=== PATIENT | male | born 1965 | race Caucasian/White ===

== ENCOUNTER 2020-05-11 08:30 | Inpatient (IN) | payer OTHER ==
[~2020-05-11] VITALS: Ht 175.3 cm; Wt 131.1 kg
[~2020-05-11 08:30] MED LIST: CARVEDILOL3.125 MG PO; CEFADROXIL500 MG PO; DEXILANT30 MG PO; DIOVAN320 MG PO; GLIPIZIDE10 MG PO; INTEGRA PLUS C1 EACH PO; INTEGRA PLUS CAPSULE PO; JANUVIA100 MG PO; METFORMIN HCL1000 MG PO; NORVASC10 MG PO; OXYC1TAB9 PO; TRAM1TAB98 PO; XARELTO 10MG PO; XARELTO10 MG PO; [UNRECOGNIZED DRUG - OTHER] PO
[2020-05-11] MEDS ORDERED: ASPIR 8181 MG PO (08:31)
[2020-05-11] MEDS ORDERED: [UNRECOGNIZED DRUG - OTHER] PO (08:32)
[2020-05-11] MEDS ORDERED: [UNRECOGNIZED DRUG - OTHER] PO (08:33)
[2020-05-11] MEDS ORDERED: SIMVASTATIN10 MG PO (08:34)
[2020-05-11] MEDS ORDERED: TAMS0.4C PO (08:34)
[2020-05-11] MEDS ORDERED: HUMULIN N100 UNIT/2 SUBCUTANEO (11:21)
[2020-05-11] MEDS ORDERED: JANUMET 50-1,01 EACH PO (11:22)
[2020-05-18] MEDS ORDERED: TOLTERODINE TART4 MG (13:08)
[2020-05-18] MEDS ORDERED: METOPROLOL SUCC50 MG PO (13:09)
[2020-05-18] MEDS ORDERED: ZADITOR5 ML (13:10)
[2020-05-18] MEDS ORDERED: CLOPIDOGREL BIS75 MG PO (13:10)
[2020-05-18] MEDS ORDERED: ZYRTEC10 MG (13:10)
[2020-05-22] MEDS ORDERED: XARELTO10 MG PO (08:20)
[2020-05-22] MEDS ORDERED: Septra Ds Tablet PO (08:20)
[2020-05-22] MEDS ORDERED: INTEGRA PLUS C1 EACH PO (08:20)
[2020-05-22] MEDS ORDERED: OXYC1TAB9 PO (08:20)
== END 2020-05-22 09:45 | disposition home or self-care (01) | DRG 470 ==
LOC: O/R 05-18 05:50 → SURH 05-18 05:50
PROVIDERS: ADMIT Orthopaedic Surgery Sports Medicine; ATTEND Orthopaedic Surgery Sports Medicine
PROC: 0SRD0J9 Replacement of Left Knee Joint with Synthetic Substitute, Cemented, Open Approach (ICD-10-PCS; principal; 2020-05-18 13:15)
PROC: 30233N1 Transfusion of Nonautologous Red Blood Cells into Peripheral Vein, Percutaneous Approach (ICD-10-PCS; 2020-05-21)
DX: M17.12 Unilateral primary osteoarthritis, left knee (principal); E11.9 Type 2 diabetes mellitus without complications; I10 Essential (primary) hypertension; E66.01 Morbid (severe) obesity due to excess calories; Z79.4 Long term (current) use of insulin; G47.33 Obstructive sleep apnea (adult) (pediatric); D64.9 Anemia, unspecified; T45.515A Adverse effect of anticoagulants, initial encounter

== ENCOUNTER 2021-11-11 07:30 | Inpatient (IN) | payer OTHER ==
[~2021-11-11] VITALS: Ht 175.3 cm; Wt 131.5 kg
[~2021-11-11 07:30] MED LIST changes: +ASPIR 8181 MG PO; +CLOPIDOGREL BIS75 MG PO; +HUMULIN N100 UNIT/2 SUBCUTANEO; +JANUMET 50-1,01 EACH PO; +METOPROLOL SUCC50 MG PO; +SIMVASTATIN10 MG PO; +Septra Ds Tablet PO; +TAMS0.4C PO; +TOLTERODINE TART4 MG; +ZADITOR5 ML; +ZYRTEC10 MG; +[UNRECOGNIZED DRUG - OTHER] PO; +[UNRECOGNIZED DRUG - OTHER] PO
[2021-11-11] MEDS ORDERED: GLIPIZIDE XL10 MG PO (09:02)
[2021-11-11] MEDS ORDERED: JANUVIA PO (09:02)
[2021-11-16] MEDS ORDERED: GABAPENTIN400 MG (08:07)
[2021-11-16] MEDS ORDERED: CLOPIDOGREL BIS75 MG (08:07)
[2021-11-16] MEDS ORDERED: TOLTERODINE TART4 MG (08:07)
[2021-11-16] MEDS ORDERED: JANUMET XR 50-1 EAC1 (08:07)
[2021-11-16] MEDS ORDERED: SIMVASTATIN10 MG (08:08)
[2021-11-16] MEDS ORDERED: LOSARTAN POTASS25 MG (08:08)
[2021-11-16] MEDS ORDERED: PANTOPRAZOLE SO40 MG (08:08)
[2021-11-16] MEDS ORDERED: PERCOCET 5-3251 EACH PO (08:46)
[2021-11-16] MEDS ORDERED: XARELTO10 MG PO (08:46)
[2021-11-16] MEDS ORDERED: INTEGRA PLUS C1 EACH PO (08:46)
[2021-11-16] MEDS ORDERED: BACTRIM DS TAB1 EACH PO (08:46)
== END 2021-11-16 13:57 | disposition home or self-care (01) | DRG 489 ==
LOC: O/R 11-15 05:30 → SURH 11-15 07:30
PROVIDERS: ADMIT Orthopaedic Surgery Sports Medicine; ATTEND Orthopaedic Surgery Sports Medicine
PROC: 0MNP0ZZ Release Left Knee Bursa and Ligament, Open Approach (ICD-10-PCS; 2021-11-15)
PROC: 0HBLXZZ Excision of Left Lower Leg Skin, External Approach (ICD-10-PCS; 2021-11-15)
PROC: 0QC Lower Bones, Extirpation (ICD-10-PCS; principal; 2021-11-15 19:00)
DX: M25.862 Other specified joint disorders, left knee (principal); Z96.652 Presence of left artificial knee joint